=== PATIENT | male | born 1965 | race Asian ===

== ENCOUNTER 2021-09-26 10:08 | Emergency (ER) | payer OTHER ==
[~2021-09-26] VITALS: Ht 175.3 cm; Wt 77.1 kg
--- NOTE | 2021-09-26 10:15 | NUR ---
PT AMB TO BED 3.
[2021-09-26 10:19] VITALS: BP 143/70
--- NOTE | 2021-09-26 10:23 | NUR ---
[facility]: RIGHT EYE 20/50, LEFT EYE 20/70, BOTH EYES 20/40.
--- NOTE | 2021-09-26 10:41 | NUR ---
PT C/O BLURRY VISION X2 DAYS WITH INCREASED MUCOUS AND COUGH PT STATES THE "PHLEGM IS MAKING IT HARD FOR ME TO SPEAK". PT NIHSS 0. NO NEURO DEFICITS NOTED.
--- NOTE | 2021-09-26 11:13 | NUR ---
Patient being evaluated by DR STYLES at bedside.
[2021-09-26] MEDS ORDERED: DEXAMETHASONE 4 MG/ML VIAL PO ONE (11:20)
[2021-09-26] MEDS ORDERED: BENZ-300 PO (12:21)
[2021-09-26] MEDS ORDERED: DEXAMETHASONE 4 MG/ML VIAL ONE ×2 (12:22→12:23)
[2021-09-26 13:00] VITALS: BP 141/70
--- NOTE | 2021-09-26 13:01 | NUR ---
Patient discharged with v/s stable. Written and verbal after care instructions given and explained. Patient verbalized understanding. Ambulatory with steady gait. All questions addressed prior to discharge. Advised to follow up with PMD.
== END 2021-09-26 13:04 | disposition home or self-care (01) ==
LOC: MED 10:08
DX: J02.9 Acute pharyngitis, unspecified (principal); I10 Essential (primary) hypertension; Z86.73 Personal history of transient ischemic attack (TIA), and cerebral infarction without residual deficits; Z79.899 Other long term (current) drug therapy
CPT/HCPCS: 70450; 87081; 99284; J1100